=== PATIENT | female | born 1940 | race Caucasian/White ===

== ENCOUNTER 2016-10-06 10:13 | Emergency (ER) | payer MEDICARE ==
[2016-10-06 10:48] VITALS: BP 137/56
--- NOTE | 2016-10-06 11:03 | UC ---
Abdominal Pain Female HPI - HPI Summary HPI Summary: epigastric abdominal pain since this morning pain is sharp shooting lasting for few seconds no radiation of the pain , no N/V/D/C no chest pain , no shortness of breath - History of Current Complaint Chief Complaint: UCAbdominalPain Stated Complaint: UPPER ABDOMINAL PAIN Time Seen by Provider: 10/06/16 10:39 Hx Obtained From: Patient Onset/Duration: Sudden Onset, Lasting Hours - 4, Still Present Timing: Intermittent Episodes Lasting: - few seconds Severity Initially: Moderate Severity Currently: Moderate Location: Epigastric Radiates: No Character: Burning Aggravating Factor(s): Nothing Alleviating Factor(s): Nothing Associated Signs and Symptoms: Positive: Negative. Negative: Diaphoresis, Fever , Cough, Chest Pain, Dizzy, Back Pain, Constipation, Blood in Stool, Urinary Symptoms, Decreased Appetite, Vaginal Bleeding, Vaginal Discharge, Nausea, Vomiting, Diarrhea Allergies/Adverse Reactions: Allergies Allergy/AdvReac Type Severity Reaction Status Date / Time Sulfa Antibiotics Allergy Hives Verified 10/06/16 10:24 Home Medications: Home Medications Aspirin Low Dose CHEW TAB* [Aspirin Low Dose TAB*] 81 mg PO DAILY 10/06/16 [ History Confirmed 10/06/16] Atenolol TAB* [Tenormin TAB* 50 MG] 50 mg PO DAILY 10/06/16 [History Confirmed 10/06/16] Calcium Carbonate [Calcium 600] 600 mg PO DAILY 10/06/16 [History Confirmed ] Clopidogrel TAB* [Plavix TAB*] 75 mg PO DAILY 10/06/16 [History Confirmed ] Docusate CAP* [Colace Cap*] 100 mg PO DAILY 10/06/16 [History Confirmed 10/06/16 ] Enalapril TAB* [Vasotec TAB*] 5 mg PO DAILY 10/06/16 [History Confirmed 10/06/16 ] Pantoprazole TAB (NF) [Protonix TAB (NF)] 40 mg PO DAILY 10/06/16 [History Confirmed 10/06/16] Rosuvastatin (NF) [Crestor (NF)] 10 mg PO 1700 10/06/16 [History Confirmed 10/06] PMH/Surg Hx/FS Hx/Imm Hx Cardiovascular History Of: Reports: Cardiac Disorders - PR 10 years ago, Hypertension Cancer History Of: Denies: Breast Cancer - Surgical History Surgical History: Yes Surgery Procedure, Year, and Place: cardiac stent - Family History Known Family History: Positive: Hypertension - Social History Alcohol Use: None Substance Use Type: None Smoking Status (MU): Never Smoked Tobacco Review of Systems Constitutional: Negative Skin: Negative Eyes: Negative ENT: Negative Respiratory: Negative Cardiovascular: Negative Gastrointestinal: Abdominal Pain Genitourinary: Negative All Other Systems Reviewed And Are Negative: Yes Physical Exam Triage Information Reviewed: Yes Appearance: Well-Appearing, No Pain Distress, Well-Nourished Vital Signs: Initial Vital Signs Temp 99.0 F 10/06/16 10:27 Pulse 67 10/06/16 10:27 Resp 16 10/06/16 10:27 BP 137/56 10/06/16 10:27 Pulse Ox 99 10/06/16 10:27 Vital Signs Reviewed: Yes Eyes: Positive: Conjunctiva Clear ENT: Positive: Normal ENT inspection, Hearing grossly normal, Pharynx normal Neck: Positive: Supple, Nontender, No Lymphadenopathy Respiratory: Positive: Chest non-tender, Lungs clear, Normal breath sounds Cardiovascular: Positive: RRR, No Murmur, Pulses Normal Abdomen Description: Positive: Nontender, Soft. Negative: CVA Tenderness (R), CVA Tenderness (L), Distended, Guarding Bowel Sounds: Positive: Present Abd Pain Female Course/Dx - Differential Dx/Diagnosis Provider Diagnoses: epigastric abdominal pain. esophagitis Discharge - Discharge Plan Condition: Stable Disposition: HOME Patient Education Materials: Epigastric Pain (ED) Referrals: GUSTAVO Lee [Primary Care Provider] - 7 Days Additional Instructions: gastritis / esophagitis no ECG changes noted go to ED in increase in your symptoms or any chest pain, shortness of breath
== END 2016-10-06 11:04 | disposition home or self-care (01) ==
LOC: UCCORT 10:13
DX: R10.13 Epigastric pain (principal); K20.9 Esophagitis, unspecified; I25.2 Old myocardial infarction; I10 Essential (primary) hypertension
CPT/HCPCS: 93005; 99211; G0463

== ENCOUNTER 2018-03-27 09:20 | Emergency (ER) | payer MEDICARE ==
--- OUTSIDE RECORDS SUMMARY | 2018-03-27 09:46 | XMS REPORT | Continuity of Care Document ---
:1940 External Reference #:[id number] Author Name Meggan Sierra Care Team Providers Name Role Phone Zahra Raymundo PA-C Care Team Information Research Associate Professor Unavailable Zahra Raymundo PA-C Primary Care Physician Unavailable Payers Type Date Identification Numbers Payment Provider Subscriber Policy Number: [id number] Medicare Marianna Harris PayID: [id number] [address] [place] [address] Policy Number: [id number] [facility] Marianna Harris PayID: [id number] [address] [place] [address] Advance Directives Description No Information Available Problems Description No Information Family History Date Family Member(s) Problem(s) Comments : (age 60 Years) Father due to Unknown Causes : (age 62 Years) Mother due to Unknown Causes : (age 73 Years) First Brother due to Heart Attack : (age 68 Years) First Sister due to Cancer : (age 68 Years) Second Sister due to Cancer Social History Type Date Description Comments Sex Unknown Allergies, Adverse Reactions, Alerts Date Description Reaction Status Severity Comments 03/17/2018 sulfa Active Medications Medication Date Status Form Strength Qnty SIG Indications Ordering Provider Meclizine HCL 0 Active Tablets Unknown 000 Pantoprazole 0 Active daily Unknown Sodium 000 Stool Softener 0 Active Capsules Unknown 000 Aspirin Adult [address] 81mg 1 by Unknown Low Dose 000 mouth every day Atenolol 000 Active Tablets 1 by Unknown 000 mouth every day Enalapril 000 Active Tablets Unknown Maleate 000 Crestor 000 Active Tablets 1 by Unknown 000 mouth every day Plavix 0 Active Tablets 1 by Unknown 000 mouth every day Immunizations Description No Information Available Vital Signs Date Vital Result Comment 03/17/2018 8:59am Weight 131.38 lb Height 62 inches 5'2" BMI (Body Mass Index) 24.0 kg/m2 BP Systolic 103 mmHg BP Diastolic 64 mmHg Heart Rate 98 /min O2 % BldC Oximetry 64 % Body Temperature 97.7 F Pain Level 0 Results Description No Information Available Procedures Description No Information Available Encounters Description No Information Available Plan of Treatment No Information Available
[2018-03-27 10:04] VITALS: BP 120/57
--- NOTE | 2018-03-27 11:02 | ED ---
Lower Extremity - HPI Summary HPI Summary: patient complaining of pain in the left hip and left flank off and on for the last several weeks. no hx. of trauma, no unusual activities that might have exacerbated the symptoms. no dysuria, no fever, hx. of kidney stones in the past . noted no fever, chills or hematuria - History of Current Complaint Chief Complaint: UCLowerExtremity Stated Complaint: LEFT SIDE PAIN Time Seen by Provider: 03/27/18 10:03 Hx Obtained From: Patient Onset/Duration: Weeks Severity Initially: Moderate Severity Currently: Moderate Pain Intensity: 7 Timing: Constant Location: Radiates To - the anterior pelvis Associated Signs And Symptoms: Positive: Negative Aggravating Factor(s): Other - sitting Able to Bear Weight: Yes - Risk Factors Gout Risk Factors: Negative DVT Risk Factors: Negative Septic Arthritis Risk Factor: Negative - Allergies/Home Medications Allergies/Adverse Reactions: Allergies Allergy/AdvReac Type Severity Reaction Status Date / Time Sulfa (Sulfonamide Allergy Hives Verified 03/27/18 09:59 Antibiotics) Home Medications: Home Medications Acetaminophen [Acetaminophen Extra Strength] 500 mg PO Q6H PRN 03/27/18 [ History Confirmed 03/27/18] PMH/Surg Hx/FS Hx/Imm Hx Previously Healthy: Yes Cardiovascular History: Reports: Hx Hypertension, Other Cardiovascular Problems/ Disorders - hx. of coronary artery stent - Surgical History Surgery Procedure, Year, and Place: cardiac stent 2006 Infectious Disease History: No Infectious Disease History: Denies: Traveled Outside the [place] in Last 30 Days - Family History Known Family History: Positive: Hypertension - Social History Alcohol Use: None Substance Use Type: Reports: None Smoking Status (MU): Never Smoked Tobacco Review of Systems Constitutional: Negative Eyes: Negative ENT: Negative Cardiovascular: Negative Respiratory: Negative Gastrointestinal: Negative Genitourinary: Negative Musculoskeletal: Other - pain on sitting, pain on bending, worse with coughing and sneezing Skin: Negative Neurological: Negative Psychological: Normal All Other Systems Reviewed And Are Negative: Yes Physical Exam Triage Information Reviewed: Yes Vital Signs On Initial Exam: Initial Vitals Temp Pulse Resp BP Pulse Ox 36.8 C 62 18 120/57 100 03/27/18 09:56 03/27/18 09:56 03/27/18 09:56 03/27/18 09:56 03/27/18 09:56 Vital Signs Reviewed: Yes Appearance: Positive: Well-Appearing, Pain Distress Skin: Positive: Warm, Dry Head/Face: Positive: Normal Head/Face Inspection Eyes: Positive: Normal ENT: Positive: Normal ENT inspection Neck: Positive: Supple Respiratory/Lung Sounds: Positive: Clear to Auscultation Cardiovascular: Positive: Normal Musculoskeletal: Positive: Pain @ - on internal and external rotation of the hip negative slr on the left, pain over the lumbar spine and SI joint, no pain over the trochanteric bursa Neurological: Positive: Normal - dtrs symmetrical, strength symmetrical, normal heel and toe walking Diagnostics - Vital Signs Vital Signs Temp Pulse Resp BP Pulse Ox 03/27/18 09:56 36.8 C 62 18 120/57 100 - Laboratory Lab Results: Lab Results 03/27/18 Range/Units 10:36 POC Urine Color Yellow POC Urine Clarity Slightly cloudy POC Urine pH 5.5 (5-9) POC Ur Specif [place] 1.015 (1.010-1.030) POC Urine Protein Negative (Negative) POC Ur Glucose (UA) Negative (Negative) POC Urine Ketones Negative (Negative) POC Urine Blood Trace-intact A (Negative) POC Urine Nitrite Negative (Negative) POC Urine Bilirubin Negative (Negative) POC Urine Urobilinogen 0.2 (Negative) POC U Leukocyte Esteras 1+ A (Negative) Lab Statement: Any lab studies that have been ordered have been reviewed, and results considered in the medical decision making process. Lower Extremity Course/Dx - Diagnoses Provider Diagnoses: Lumbar disc disease with radiculopathy Discharge - Sign-Out/Discharge Documenting (check all that apply): Patient Departure All imaging exams completed and their final reports reviewed: Yes - Discharge Plan Condition: Good Disposition: HOME Prescriptions: Ciprofloxacin TAB* [Cipro 250 MG Tab*] 250 mg PO BID #8 tab Patient Education Materials: Degenerative Disc Disease (ED), Urinary Tract Infection in Women (DC) Referrals: Zahra Raymundo PA [Primary Care Provider] - Additional Instructions: need follow up with primary care doctor and referral to neurology for further evaluation - Billing Disposition and Condition Condition: GOOD Disposition: Home
--- NOTE | 2018-03-27 11:16 | RAD ---
Indication: LEFT side back and hip pain. Comparison: No relevant prior exams available on the [facility] PACS for comparison. Technique: AP pelvis and AP and frog-leg lateral views LEFT hip. Report: Normally located LEFT hip. No radiographic evidence for LEFT femoral neck or pelvic fracture or pelvic joint diastases. The LEFT hip is remarkable for mild osteophytosis and mild axial joint space narrowing grossly symmetric with the contralateral hip however the RIGHT hip demonstrates more significant osteophytosis. Unremarkable soft tissue contours. IMPRESSION: #. No radiographic evidence for LEFT hip fracture. #. 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
--- NOTE | 2018-03-27 11:17 | RAD ---
INDICATION: Left back and hip pain COMPARISON: None. TECHNIQUE: 5 views of the lumbar spine were obtained. FINDINGS: On the AP view of the lumbar spine there is a very mild degree of levoconvex curvature. On the lateral view there is loss of intervertebral disc height seen at multiple levels most severely affecting L3/L4 and L2/L3 where there is endplate sclerosis and marginal osteophyte formation. There is bony proliferation overlying the facet joints. There is no severe spondylolisthesis seen. Incidentally noted is coarse atherosclerotic calcification of the lower abdominal aorta and bilateral common iliac arteries. IMPRESSION: 1. Multilevel degenerative change of the lumbar spine as described above most severely affecting L2/L3 and L3/L4. 2. Incidentally noted is coarse atherosclerotic calcification of the lower abdominal aorta extending into the bilateral common iliac arteries. Please correlate to signs or symptoms of arterial insufficiency which can sometimes present as hip and buttock claudication.
== END 2018-03-27 12:01 | disposition home or self-care (01) ==
LOC: UCCORT 09:20
DX: M51.16 Intervertebral disc disorders with radiculopathy, lumbar region (principal); Z87.442 Personal history of urinary calculi; Z88.1 Allergy status to other antibiotic agents
CPT/HCPCS: 72110; 81003; 87086; 99212; G0463

== ENCOUNTER 2018-12-03 08:03 | Emergency (ER) | payer MEDICARE ==
[2018-12-03 08:27] VITALS: BP 128/61
--- NOTE | 2018-12-03 08:40 | UC ---
Skin Complaint HPI - HPI Summary HPI Summary: 78-year-old female who has a history of hemorrhoids. She tried a new hemorrhoid cream and now has severe itching around the rectal area with some clear drainage and started during the night. - History of Current Complaint Chief Complaint: UCGeneralIllness Time Seen by Provider: 12/03/18 08:18 Stated Complaint: PERSONAL Hx Obtained From: Patient ?: No Onset/Duration: Gradual Onset Skin Exposure Onset/Duration: Hours Ago Timing: Constant Onset Severity: Mild Current Severity: Moderate Pain Intensity: 0 Location: Other - Skin around the rectum Character: Pruritus, Redness - Some clear drainage. Aggravating Factor(s): OTC Meds - Patient used a new anti-hemorrhoid cream. Alleviating Factor(s): Nothing Associated Signs & Symptoms: Positive: Drainage - Patient had some clear drainage from the area. Related History: Other: - Possible allergic reaction to the hemorrhoid cream. - Allergy/Home Medications Allergies/Adverse Reactions: Allergies Allergy/AdvReac Type Severity Reaction Status Date / Time Sulfa (Sulfonamide Allergy Hives Verified 12/03/18 08:22 Antibiotics) Home Medications: Home Medications Hemmrhoid Cream 1 applic TOPICAL ONCE PRN 12/03/18 [History] PMH/Surg Hx/FS Hx/Imm Hx Previously Healthy: Yes Cardiovascular History: Myocardial Infarction GI/ History: Other - History of hemorrhoids - Surgical History Surgical History: Yes Surgery Procedure, Year, and Place: cardiac stent 2006 - Family History Known Family History: Positive: Hypertension - Social History Occupation: Retired Alcohol Use: None Substance Use Type: None Smoking Status (MU): Never Smoked Tobacco Review of Systems All Other Systems Reviewed And Are Negative: Yes Skin: Positive: Rash, Other - Itching and clear drainage from the rectal area. Is Patient Immunocompromised?: No Physical Exam Triage Information Reviewed: Yes Appearance: Well-Appearing, No Pain Distress, Well-Nourished Vital Signs: Initial Vital Signs Temp 98.6 F 12/03/18 08:24 Pulse 93 12/03/18 08:24 Resp 16 12/03/18 08:24 BP 128/61 12/03/18 08:24 Pulse Ox 100 12/03/18 08:24 Vital Signs Reviewed: Yes Skin: Positive: Rashes - The area around the rectal area to include approximately 4.0 cm of the buttocks is a contact dermatitis with clear drainage. There is no secondary skin infection. Course/Dx - Course Course Of Treatment: Patient is comfortable here. I advised her to stop using the hemorrhoid cream which she has already stopped. I'm going to put her on tapering prednisone with follow-up with her primary care provider if no improvement. She is to clean the area with water and then let it air dry and to wear cotton underwear as much as possible allow the area to air out. - Diagnoses Provider Diagnosis: Contact dermatitis Discharge - Sign-Out/Discharge Documenting (check all that apply): Patient Departure All imaging exams completed and their final reports reviewed: No Studies - Discharge Plan Condition: Fair Disposition: HOME Prescriptions: predniSONE [Prednisone 20 MG TAB] 20 mg PO DAILY 9 Days #18 tablet Patient Education Materials: Contact Dermatitis (DC) Referrals: Michael Hook MD [Primary Care Provider] - Additional Instructions: Keep the area clean and dry, wear cotton underwear, take the prednisone with food. Definite follow-up with your primary care provider if no improvement in 3 or 4 days. - Billing Disposition and Condition Condition: FAIR Disposition: Home - Attestation Statements Provider Attestation: I was available for consult. This patient was seen by the FRANK. The patient was not presented to , seen by or examined by oh -Deana Hickman MD
== END 2018-12-03 08:55 | disposition home or self-care (01) ==
LOC: UCCORT 08:03
DX: L25.9 Unspecified contact dermatitis, unspecified cause (principal); Z88.1 Allergy status to other antibiotic agents; I25.2 Old myocardial infarction
CPT/HCPCS: 99212; G0463